=== PATIENT | female | born 1930 | race Hispanic/Latino ===

== ENCOUNTER 2017-10-24 08:33 | Emergency (ER) | payer MEDICARE ==
[2017-10-24 09:37] LABS: Bacteria,Urine 1+ /HPF (Negative); Bilirubin,Urine NEG (Negative); Blood,Urine NEG (Negative); Ketones,Urine NEG (Negative); Leukocyte Esterase,Urine NEG (Negative); Nitrite,Urine NEG (Negative); Urobilinogen,Urine < 2.0 mg/dL (<2.0)
[2017-10-24 09:40] LABS: Basophils % (Auto) 0.3 % (0.0-1.8); Eosinophils % (Auto) 0.4 % (0.0-4.3); Hematocrit 32.6 % (30.3-42.9); Hemoglobin 10.5 gm/dl (10.1-14.3); Mean Corpuscular HGB Conc 32 % (30-34); Mean Corpuscular Hemoglobin 31 pg (28-32); Mean Corpuscular Volume 97 fl (79-97); Platelet Count 203 K/mm3 (140-440); Red Blood Count 3.37 M/mm3 (3.65-5.03); Red Cell Distribution Width 15.7 % (13.2-15.2); White Blood Count 14.2 K/mm3 (4.5-11.0)
[2017-10-24 10:03] LABS: Alanine Aminotransferase 15 units/L (7-56); Albumin/Globulin Ratio 1.3 %; Alkaline Phosphatase 74 units/L (35-129); BUN/Creatinine Ratio 30; Blood Urea Nitrogen 18 mg/dL (7-17); Calcium 9.2 mg/dL (8.4-10.2); Carbon Dioxide 27 mmol/L (22-30); Glucose 203 mg/dL (65-100); Total Protein 7.1 g/dL (6.3-8.2)
[2017-10-24 10:04] LABS: Anion Gap 18 mmol/L; Chloride 102.3 mmol/L (98-107); Sodium 143 mmol/L (137-145)
--- NOTE | 2017-10-24 10:09 | Cat Scan Report ---
Cranial CT without contrast. History: Altered mental status. Findings: There are multiple areas of intracranial hemorrhage. There is a subarachnoid hemorrhage primarily seen in the cortical sulci of the right temporal and parietal lobes although hemorrhage is also noted along the anterior interhemispheric fissure including mild hemorrhage in the left parasagittal region. There is a small subdural hemorrhage on the right measuring 5 mm in diameter with no significant mass effect. There is hemorrhage along the right tentorial insertion. There also areas of hemorrhage in the basal cisterns bilaterally. The posterior fossa is otherwise unremarkable. Cortical atrophy is noted. The calvarium is intact. Impression: Extensive subarachnoid hemorrhage with small right subdural hematoma and no significant mass effect. Comment: Code purple. These findings were given by telephone to the emergency room physician Dr. Diez at 10:05 AM on October 24.
--- NOTE | 2017-10-24 10:27 | Emergency Department Report ---
ED General Adult HPI - General Chief complaint: Altered Mental Status Stated complaint: AMS Time Seen by Provider: 10/24/17 10:15 Source: family, EMS Mode of arrival: Stretcher Limitations: Altered Mental Status - History of Present Illness Initial comments: The patient is an 86-year-old independent living female who called her family with a severe headache this morning. At the time of their arrival she was found to be confused and was transported to the emergency room for evaluation. She did already have her CT done before I arrived. Radiologist reported the scan with extensive subarachnoid hemorrhage and small right subdural collection with no significant mass effect. Patient was immediately examined and stabilization is in progress. The patient is lethargic, confused but not complaining of severe pain. She is able to communicate although her speech is somewhat tangential and a bit incomprehensible at times. -: unknown Location: head - Related Data Previous Rx's Medication Instructions Recorded Last Taken Type Doxycycline Monohydrate 100 mg PO BID #400 ml 11/29/14 Unknown Rx [Doxycycline Monohydrate ORAL LIQ] Mupirocin [Bactroban 2% Oint] 1 applic TP TID #1 tube 11/29/14 Unknown Rx Allergies Allergy/AdvReac Type Severity Reaction Status Date / Time Iodinated Contrast- Oral and Allergy Hives Verified 11/29/14 11:24 IV Dye ED Review of Systems ROS: Stated complaint: AMS Other details as noted in HPI Comment: Unobtainable due to pts medical conditions ED Past Medical Hx - Past Medical History Hx Heart Attack/AMI: Yes Additional medical history: Peripheral Vascular disease. Achalasia - Surgical History Additional Surgical History: Feeding tube placement - Social History Smoking Status: Never Smoker Substance Use Type: None - Medications Home Medications: Home Medications Medication Instructions Recorded Confirmed Last Taken Type Doxycycline Monohydrate 100 mg PO BID #400 ml 11/29/14 Unknown Rx [Doxycycline Monohydrate ORAL LIQ] Mupirocin [Bactroban 2% Oint] 1 applic TP TID #1 tube 11/29/14 Unknown Rx ED Physical Exam - General Limitations: Altered Mental Status General appearance: lethargic - Head Head exam: Present: atraumatic - Eye Eye exam: Present: normal appearance, PERRL, EOMI - ENT ENT exam: Present: normal exam - Neck Neck exam: Present: normal inspection. Absent: tenderness, meningismus - Respiratory Respiratory exam: Present: normal lung sounds bilaterally, other (kyphotic chest ). Absent: respiratory distress - Cardiovascular Cardiovascular Exam: Present: regular rate, normal rhythm. Absent: systolic murmur, diastolic murmur, rubs, gallop - GI/Abdominal GI/Abdominal exam: Present: soft, normal bowel sounds. Absent: distended, tenderness, guarding, rebound, rigid - Extremities Exam Extremities exam: Present: normal inspection - Neurological Exam Neurological exam: Present: CN II-XII intact (grossly on limited exam), other ( the patient has no observable shrift. Exam is limited secondary to her mental status. She does grasp fingers. She does not open her eyes except to noxious stimuli. Her speech is sparse of although confused.) - Psychiatric Psychiatric exam: Present: flat affect - Skin Skin exam: Present: warm, dry, intact, normal color. Absent: rash - Other Other exam information: GCS score of 12 is assigned. ED Course Vital Signs 10/24/17 10/24/17 10/24/17 08:56 09:00 09:15 Temperature 98.7 F Pulse Rate 69 98 H 99 H Respiratory 18 21 23 Rate Blood Pressure 212/88 205/87 205/87 O2 Sat by Pulse 95 93 95 Oximetry 10/24/17 10/24/17 09:45 10:14 Temperature 98.8 F Pulse Rate 100 H Respiratory 28 H Rate Blood Pressure 199/85 O2 Sat by Pulse 94 Oximetry - Reevaluation(s) Reevaluation #1: Initial stabilization included Cardene drip. We will titrate down to under 150. It was discussed with Dr. Bell the neuro intensive care physician who was kind enough to accept this patient to [facility]. In addition I gave her a gram of prophylactic Keppra. I also gave her [address] Bell was in agreement with these measures. Air ambulance transport is in progress. 10/24/17 10:55 ED Medical Decision Making - Lab Data Result diagrams: 10/24/17 09:21 10/24/17 09:21 Laboratory Results - last 24 hr 10/24/17 10/24/17 10/24/17 08:45 09:21 09:21 WBC 14.2 H RBC 3.37 L Hgb 10.5 Hct 32.6 MCV 97 MCH 31 MCHC 32 RDW 15.7 H Plt Count 203 Lymph % (Auto) 11.2 L [place] % (Auto) 6.1 Eos % (Auto) 0.4 Baso % (Auto) 0.3 Lymph # 1.6 [place] # 0.9 H Eos # 0.1 Baso # 0.0 Seg Neutrophils % 82.0 H Seg Neutrophils # 11.6 H Sodium 143 Potassium 4.0 Chloride 102.3 Carbon Dioxide 27 Anion Gap 18 BUN 18 H Creatinine 0.6 L Estimated GFR > 60 BUN/Creatinine Ratio 30 Glucose 203 H Calcium 9.2 Total Bilirubin 0.30 AST 21 ALT 15 Alkaline Phosphatase 74 Troponin T < 0.010 Total Protein 7.1 Albumin 4.0 Albumin/Globulin Ratio 1.3 Urine Color Straw Urine Turbidity Clear Urine pH 8.0 H Ur Specific [place] 1.011 Urine Protein 100 mg/dl Urine Glucose (UA) 50 Urine Ketones Neg Urine Blood Neg Urine Nitrite Neg Urine Bilirubin Neg Urine Urobilinogen < 2.0 Ur Leukocyte Esterase Neg Urine WBC (Auto) 3.0 Urine RBC (Auto) 3.0 U Epithel Cells (Auto) < 1.0 Urine Bacteria (Auto) 1+ Laboratory Results - last 24 hr 10/24/17 10/24/17 10/24/17 08:45 09:21 09:21 WBC 14.2 H RBC 3.37 L Hgb 10.5 Hct 32.6 MCV 97 MCH 31 MCHC 32 RDW 15.7 H Plt Count 203 Lymph % (Auto) 11.2 L [place] % (Auto) 6.1 Eos % (Auto) 0.4 Baso % (Auto) 0.3 Lymph # 1.6 [place] # 0.9 H Eos # 0.1 Baso # 0.0 Seg Neutrophils % 82.0 H Seg Neutrophils # 11.6 H PT 13.3 INR 0.96 APTT 27.3 Sodium Potassium Chloride Carbon Dioxide Anion Gap BUN Creatinine Estimated GFR BUN/Creatinine Ratio Glucose Calcium Total Bilirubin AST ALT Alkaline Phosphatase Troponin T Total Protein Albumin Albumin/Globulin Ratio Urine Color Straw Urine Turbidity Clear Urine pH 8.0 H Ur Specific [place] 1.011 Urine Protein 100 mg/dl Urine Glucose (UA) 50 Urine Ketones Neg Urine Blood Neg Urine Nitrite Neg Urine Bilirubin Neg Urine Urobilinogen < 2.0 Ur Leukocyte Esterase Neg Urine WBC (Auto) 3.0 Urine RBC (Auto) 3.0 U Epithel Cells (Auto) < 1.0 Urine Bacteria (Auto) 1+ 10/24/17 09:21 WBC RBC Hgb Hct MCV MCH MCHC RDW Plt Count Lymph % (Auto) [place] % (Auto) Eos % (Auto) Baso % (Auto) Lymph # [place] # Eos # Baso # Seg Neutrophils % Seg Neutrophils # PT INR APTT Sodium 143 Potassium 4.0 Chloride 102.3 Carbon Dioxide 27 Anion Gap 18 BUN 18 H Creatinine 0.6 L Estimated GFR > 60 BUN/Creatinine Ratio 30 Glucose 203 H Calcium 9.2 Total Bilirubin 0.30 AST 21 ALT 15 Alkaline Phosphatase 74 Troponin T < 0.010 Total Protein 7.1 Albumin 4.0 Albumin/Globulin Ratio 1.3 Urine Color Urine Turbidity Urine pH Ur Specific [place] Urine Protein Urine Glucose (UA) Urine Ketones Urine Blood Urine Nitrite Urine Bilirubin Urine Urobilinogen Ur Leukocyte Esterase Urine WBC (Auto) Urine RBC (Auto) U Epithel Cells (Auto) Urine Bacteria (Auto) - EKG Data -: EKG Interpreted by Me EKG shows normal: sinus rhythm, intervals, ST-T waves - EKG Data Interpretation: other (there is a Q in V2 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 Critical Care Time: Yes Critical care time in (mins) excluding proc time.: 60 Critical care attestation.: If time is entered above; I have spent that time in minutes in the direct care of this critically ill patient, excluding procedure time. ED Disposition Clinical Impression: Subarachnoid hemorrhage, Hypertensive emergency, Hyperglycemia Anemia Qualifiers: Anemia type: unspecified type Qualified Code(s): D64.9 - Anemia, unspecified Disposition: [id number]/TX-[id number] ANOTHER TYPE HLTHCARE Is pt being admited?: No Does the pt Need Aspirin: No Condition: Stable Instructions: Hypertension (ED) Referrals: PRIMARY CARE, [Primary Care Provider] - 3-5 Days Time of Disposition: 10:59
[2017-10-24] MEDS ORDERED: KEPPRA 1,000 MG/NS 0.75% 100ML 1,000 MG/100 ML BAG IV ONE (10:29)
[2017-10-24 10:31] LABS: INR 0.96 (0.87-1.13)
[2017-10-24 10:32] LABS: Partial Thromboplastin Time 27.3 Sec. (24.2-36.6)
[2017-10-24] MEDS ORDERED: CARDENE 50 MG in NACL 0.9% 250ML 230 ML IV SCH (11:00)
[2017-10-24 11:05] VITALS: BP 186/77
[2017-10-24] MEDS ORDERED: NACL 0.9% 500 ML 500 ML ONE (11:21)
[2017-10-24] MEDS ORDERED: NACL 0.9% IV ONE (11:30)
[2017-10-24] MEDS ORDERED: AMICAR IV ONE (11:30)
--- NOTE | 2017-10-24 16:24 | XRay Report ---
AP CHEST :10/24/17 08:33:00 CLINICAL: Altered mental status. COMPARISON:05/28/12 FINDINGS: Stable cardiomegaly. The pulmonary vessels are indistinct. Stable right paratracheal and paraspinal opacity consistent with a dilated esophagus as seen on prior exams. The esophagus appears to be filled with secretions or food. The lungs are normally expanded and clear. The bones and soft tissues are unremarkable. IMPRESSION: Cardiomegaly but no CHF. Achalasia with pronounced esophageal dilatation which is unchanged compared to prior exams.
[2017-10-24] MEDS ORDERED: NACL 0.9% 500 ML 500 ML IV ONE (18:33)
== END 2017-10-24 11:44 | disposition other institution (70) ==
LOC: ED 08:33
DX: I60.8 Other nontraumatic subarachnoid hemorrhage (principal); D64.9 Anemia, unspecified; I10 Essential (primary) hypertension; R73.9 Hyperglycemia, unspecified; I25.2 Old myocardial infarction; Z88.8 Allergy status to other drugs, medicaments and biological substances
CPT/HCPCS: 36415; 70450; 71010; 80053; 81001; 84484; 85025; 85610; 85730; 93005; 93010; 96374; 99291; J1953; J7040; J7050